=== PATIENT | male | born 1935 | race Caucasian/White ===

== ENCOUNTER 2016-10-05 09:15 | Inpatient (IN) | payer MEDICARE, OTHER ==
[2016-10-05] MEDS ORDERED: SODIUM CHLORIDE 0.9% 1,000 ML IV STA (09:27)
[2016-10-05] MEDS ORDERED: IPRATROPIUM 0.5 MG/2.5 ML NEBU INHALATION STA (09:27)
[2016-10-05] MEDS ORDERED: LEVALBUTEROL NEB 1.25 MG/3 ML AMP INHALATION STA (09:27)
[2016-10-05 10:00] LABS: Basophils % (A) 0 %; CH 33.4; Eosinophils % (A) 0 %; HCT 35.9 % (39.0-53.0); HDW 2.35; HGB 11.6 gm/dL (13.0-17.5); Luc % (Auto) 1; Lymphocytes # (A) 0.5 k/uL (1.0-4.8); Lymphocytes % (A) 5 %; MCH 32.9 pg (25.0-35.0); MCHC 32.4 g/dL (31.0-37.0); MCV 101.6 fL (80.0-100.0); Mean Platelet Volume 6.5; Monocytes # (A) 0.5 k/uL (0-1.0); Monocytes % (A) 6 %; Neutrophils # (A) 7.9 k/uL (1.3-7.7); Neutrophils % (A) 87 %; RBC 3.53 m/uL (4.30-5.90); RDW 12.5 % (11.5-15.5); WBC (Perox) 9.42
--- NOTE | 2016-10-05 10:01 | ED ---
General Adult HPI - General Chief complaint: Shortness of Breath Stated complaint: SOB Time Seen by Provider: 10/05/16 09:27 Source: patient, RN notes reviewed, old records reviewed Mode of arrival: wheelchair Limitations: no limitations - History of Present Illness Initial comments: This is a 81-year-old male who ER for evaluation. Patient presents today for evaluation of chest pain and shortness of breath. Patient's his physician's office for evaluation regarding these symptoms. Patient's main complaint results from shortness of breath. Patient does have medical history of A. fib COPD is heart disease. Patient's coming to the ER today source of breath and hypoxia. Worsening shortness of breath activity, symptoms for a week but worse today - Related Data Home Medications Medication Instructions Recorded Confirmed Amitriptyline HCl 25 mg PO HS 10/16/15 10/05/16 Digoxin [Digox] 125 mcg PO DAILY 10/16/15 10/05/16 Fenofibrate,Micronized 134 mg PO DAILY 10/16/15 10/05/16 [Fenofibrate] Ferrous Sulfate [Feosol] 325 mg PO DAILY 10/16/15 10/05/16 Mirtazapine [Mirtazapine] 15 mg PO HS 10/16/15 10/05/16 Verapamil HCl [Calan] 120 mg PO DAILY 10/16/15 10/05/16 Albuterol Nebulized [Ventolin 2.5 mg INHALATION RT-QID 01/23/16 10/05/16 Nebulized] Aspirin EC [Ecotrin Low Dose] 81 mg PO DAILY 03/23/16 10/05/16 guaiFENesin-DM 100-10MG/5ML 10 ml PO Q4HR PRN 10/05/16 10/05/16 [Robitussin DM] Previous Rx's Medication Instructions Recorded HYDROcodone/APAP 10-325MG [[place] 1 tab PO Q6H PRN #40 tab 10/22/15 10-325] Allergies Allergy/AdvReac Type Severity Reaction Status Date / Time aspirin Allergy Unknown Verified 10/05/16 11:04 Penicillins Allergy Unknown Verified 10/05/16 11:04 Review of Systems ROS Statement: Those systems with pertinent positive or pertinent negative responses have been documented in the HPI. ROS Other: All systems not noted in ROS Statement are negative. Past Medical History Past Medical History: Atrial Fibrillation, Coronary Artery Disease (CAD), CVA/ TIA Additional Past Medical History / Comment(s): COPD, Coronary artery disease with previous bypass surgery. The patient also has a bioprosthetic valve, chronic atrial fibrillation, previous history of CVA, depression, hypertension, hyperlipidemia. History of Any Multi-Drug Resistant Organisms: None Reported Past Surgical History: Coronary Bypass/CABG, Orthopedic Surgery Additional Past Surgical History / Comment(s): valve surgery shoulder surg brain surg Past Anesthesia/Blood Transfusion Reactions: No Reported Reaction Past Psychological History: No Psychological Hx Reported Smoking Status: Current every day smoker Past Alcohol Use History: None Reported Past Drug Use History: None Reported General Exam Limitations: no limitations Course Vital Signs 10/05/16 10/05/16 10/05/16 09:22 09:30 10:09 Temperature 95.6 F L Pulse Rate 70 73 62 Respiratory 22 20 Rate Blood Pressure 80/39 104/49 O2 Sat by Pulse 88 L 98 Oximetry 10/05/16 10/05/16 10/05/16 10:15 10:23 11:15 Temperature Pulse Rate 58 L 63 56 L Respiratory Rate Blood Pressure 113/59 111/53 O2 Sat by Pulse 100 97 Oximetry - Reevaluation(s) Reevaluation #1: 10/05/16 10:33 Patient does have breathing treatment improvement, improvement of respiratory status EKG Findings - EKG Comments: EKG Findings:: EKG shows normal sinus rhythm junctional rhythm rate of 66, QRS 106, QTC 419, ST depression in lateral leads. Repeat EKG shows again normal/62 , NC 186, QRS 100, QTC [address] depression in the lateral leads V4 through V6 Medical Decision Making - Medical Decision Making Side and now the ER for evaluation of cough congestion chest pain shortness of breath. Patient does have positive pneumonia, will admit for breathing treatments and IV antibiotics, patient also with elevated troponin and Adams for trending of troponin cardiopulmonary support - Lab Data Result diagrams: 10/05/16 09:44 10/05/16 09:44 Lab Results 10/05/16 10/05/16 10/05/16 Range/Units 09:44 09:44 09:44 WBC 9.0 (3.8-10.6) k/uL RBC 3.53 L (4.30-5.90) m/uL Hgb 11.6 L (13.0-17.5) gm/dL Hct 35.9 L (39.0-53.0) % MCV 101.6 H (80.0-100.0) fL MCH 32.9 (25.0-35.0) pg MCHC 32.4 (31.0-37.0) g/dL RDW 12.5 (11.5-15.5) % Plt Count 283 (150-450) k/uL Neutrophils % 87 % Lymphocytes % 5 % Monocytes % 6 % Eosinophils % 0 % Basophils % 0 % Neutrophils # 7.9 H (1.3-7.7) k/uL Lymphocytes # 0.5 L (1.0-4.8) k/uL Monocytes # 0.5 (0-1.0) k/uL Eosinophils # 0.0 (0-0.7) k/uL Basophils # 0.0 (0-0.2) k/uL PT (9.0-12.0) sec INR (<1.1) APTT (22.0-30.0) sec D-Dimer (<0.60) mg/L FEU Sodium 137 (137-145) mmol/L Potassium 3.9 (3.5-5.1) mmol/L Chloride 100 (98-107) mmol/L Carbon Dioxide 28 (22-30) mmol/L Anion Gap 9 mmol/L BUN 17 (9-20) mg/dL Creatinine 0.74 (0.66-1.25) mg/dL Est GFR (MDRD) Af Amer >60 (>60 ml/min/1.73 sqM) Est GFR (MDRD) Non-Af >60 (>60 ml/min/1.73 sqM) Glucose 106 H (74-99) mg/dL Calcium 9.2 (8.4-10.2) mg/dL Magnesium 1.5 L (1.6-2.3) mg/dL Total Bilirubin 1.1 (0.2-1.3) mg/dL AST 40 (17-59) U/L ALT 37 (21-72) U/L Alkaline Phosphatase 47 (38-126) U/L Total Creatine Kinase 76 (55-170) U/L CK-MB (CK-2) 2.4 (0.0-2.4) ng/mL CK-MB (CK-2) Rel Index 3.2 Troponin I 0.039 H* (0.000-0.034) ng/mL NT-Pro-B Natriuret Pep pg/mL Total Protein 6.2 L (6.3-8.2) g/dL Albumin 3.5 (3.5-5.0) g/dL 10/05/16 10/05/16 Range/Units 09:44 09:44 WBC (3.8-10.6) k/uL RBC (4.30-5.90) m/uL Hgb (13.0-17.5) gm/dL Hct (39.0-53.0) % MCV (80.0-100.0) fL MCH (25.0-35.0) pg MCHC (31.0-37.0) g/dL RDW (11.5-15.5) % Plt Count (150-450) k/uL Neutrophils % % Lymphocytes % % Monocytes % % Eosinophils % % Basophils % % Neutrophils # (1.3-7.7) k/uL Lymphocytes # (1.0-4.8) k/uL Monocytes # (0-1.0) k/uL Eosinophils # (0-0.7) k/uL Basophils # (0-0.2) k/uL PT 12.0 (9.0-12.0) sec INR 1.2 (<1.1) APTT 25.1 (22.0-30.0) sec D-Dimer 0.74 H (<0.60) mg/L FEU Sodium (137-145) mmol/L Potassium (3.5-5.1) mmol/L Chloride (98-107) mmol/L Carbon Dioxide (22-30) mmol/L Anion Gap mmol/L BUN (9-20) mg/dL Creatinine (0.66-1.25) mg/dL Est GFR (MDRD) Af Amer (>60 ml/min/1.73 sqM) Est GFR (MDRD) Non-Af (>60 ml/min/1.73 sqM) Glucose (74-99) mg/dL Calcium (8.4-10.2) mg/dL Magnesium (1.6-2.3) mg/dL Total Bilirubin (0.2-1.3) mg/dL AST (17-59) U/L ALT (21-72) U/L Alkaline Phosphatase (38-126) U/L Total Creatine Kinase (55-170) U/L CK-MB (CK-2) (0.0-2.4) ng/mL CK-MB (CK-2) Rel Index Troponin I (0.000-0.034) ng/mL NT-Pro-B Natriuret Pep 3370 pg/mL Total Protein (6.3-8.2) g/dL Albumin (3.5-5.0) g/dL - Radiology Data Radiology results: report reviewed (Chest x-ray is negative for acute disease), image reviewed Critical Care Time Critical Care Time: Yes Total Critical Care Time: 31 Disposition Clinical Impression: Congestive heart failure, Community acquired pneumonia, Acute exacerbation of chronic obstructive airways disease, Unstable angina, Chest pain Disposition: ADMITTED IP TO THIS HOSP Condition: Serious
[2016-10-05 10:10] LABS: ALT 37 U/L (21-72); AST 40 U/L (17-59); Alkaline Phosphatase 47 U/L (38-126); Anion Gap 9 mmol/L; Blood Urea Nitrogen 17 mg/dL (9-20); Calcium 9.2 mg/dL (8.4-10.2); Carbon Dioxide 28 mmol/L (22-30); Chloride 100 mmol/L (98-107); Glucose 106 mg/dL (74-99); INR 1.2 (<1.1); Magnesium 1.5 mg/dL (1.6-2.3); Non-African American GFR(MDRD) >60 (>60 ml/min/1.73 sqM); Partial Thromboplastin Time 25.1 sec (22.0-30.0); Potassium 3.9 mmol/L (3.5-5.1); Sodium 137 mmol/L (137-145); Total Bilirubin 1.1 mg/dL (0.2-1.3); Total Protein 6.2 g/dL (6.3-8.2)
--- NOTE | 2016-10-05 10:13 | XR ---
EXAMINATION TYPE: XR chest 1V portable DATE OF EXAM: 10/05/2016 10:02 AM COMPARISON: 12/06/2015 INDICATION: Short of breath chest pain TECHNIQUE: Single frontal view of the chest is obtained. FINDINGS: The heart size is normal. The pulmonary vasculature is normal. There may be some emphysematous change present. No focal consolidations in the right lower lobe. Correlate for pneumonia. Mild increased lung marking s are at the left base. Correlate for atelectasis or pneumonia. Progress sternotomy wires are in the midline. EKG leads overlie the chest. IMPRESSION: 1. Clinical correlation recommended for right lower lobe and possibly mild left lower lobe pneumonia. Follow-up to clearing is recommended.
[2016-10-05] MEDS ORDERED: PNEUMONIA PROTOCOL UTILIZED 1 EACH MISC PO PRN (10:16)
[2016-10-05] MEDS ORDERED: HEPARIN SODIUM,PORCINE 5,000 UNIT/ML 1 ML VIAL IV PRN (10:16)
[2016-10-05] MEDS ORDERED: LEVOFLOXACIN 750MG-D5W PMX 750 MG in DEXTROSE/WATER 1 150ML.BAG IVPB STA (10:16)
[2016-10-05] MEDS ORDERED: NITROGLYCERIN SL TABS 0.4 MG TAB SUBLINGUAL PRN (10:16)
[2016-10-05] MEDS ORDERED: MORPHINE SULFATE 4 MG/ML SYRINGE IV PRN (10:16)
[2016-10-05] MEDS ORDERED: HEPARIN SODIUM,PORCINE 5,000 UNIT/ML 1 ML VIAL IV ONE (10:16)
[2016-10-05] MEDS ORDERED: AZTREONAM 2 GM in SODIUM CHLORIDE 0.9% 100 ML IVPB STA (10:24)
[2016-10-05 10:36] LABS: Creatine Kinase MB 2.4 ng/mL (0.0-2.4)
[2016-10-05 10:50] LABS: Troponin I 0.039 ng/mL (0.000-0.034)
[2016-10-05] MEDS: HEPARIN SODIUM,PORCINE/D5W PMX 25,000 UNIT in DEXTROSE/WATER 1 500ML.BAG IV SCH (11:26)
[2016-10-05] MEDS: IPRATROPIUM-ALBUTEROL 3 ML NEB INHALATION SCH ×3 (15:14→19:39)
[2016-10-05 16:54] LABS: Creatine Kinase MB 2.3 ng/mL (0.0-2.4); Troponin I 0.031 ng/mL (0.000-0.034)
[2016-10-05] MEDS: AZTREONAM 2 GM in SODIUM CHLORIDE 0.9% 100 ML IVPB SCH (17:25)
[2016-10-05] MEDS ORDERED: RX INFO: IV CONTRAST WAS GIVEN 1 EACH MISC MISCELLANE PRN (17:33)
[2016-10-05] MEDS: CLINDAMYCIN 600 MG in DEXTROSE 5% IN WATER 50 ML IVPB SCH ×2 (18:02)
--- NOTE | 2016-10-05 19:39 | CT ---
EXAMINATION TYPE: CT chest w con DATE OF EXAM: 10/05/2016 7:26 PM COMPARISON: CT cap October 16, 2015 HISTORY: Cough, congestion and chest pain. Dyspnea per order. CT DLP: 251.4 mGycm. Automated Exposure Control for Dose Reduction was Utilized. TECHNIQUE: CT scan of the thorax is performed following with IV Contrast, patient injected with 100 mL of Omnipaque 300. FINDINGS: LUNGS: Fairly moderate to advanced emphysematous changes redemonstrated with large bulla in the right lung apex again seen. There are ill-defined infiltrates with consolidation involving the right lower lobe and right middle lobe as well as more prominent consolidation seen in the lingula. Respiratory motion artifact is seen in bases making evaluation slightly suboptimal. No pleural effusion or pneumo thorax is present. Tracheobronchial tree is patent. MEDIASTINUM: There are no greater than 1 cm hilar or mediastinal lymph nodes. No pericardial effusi on is seen. There is cardiomegaly with severe left atrial dilatation redemonstrated. There is eviden ce of prior surgery at level of mitral valve. Poststernotomy changes are noted. There is mild to mode rate calcified plaque in the thoracic aorta. OTHER: Osseous structures are demineralized. Slight S-shaped scoliosis is present. IMPRESSION: Moderate to advanced emphysematous change with bilateral multilobar opacities and consoli dation suggesting multilobar pneumonia, clinical correlation advised. Cardiomegaly with severe left a trial dilatation redemonstrated.
[2016-10-05] MEDS ORDERED: HYDROcodone/APAP 10-325MG 1 EACH TAB PO PRN (20:10)
[2016-10-05] MEDS: AMITRIPTYLINE HCL 25 MG TAB PO SCH (21:30)
[2016-10-05] MEDS: MIRTAZAPINE 15 MG TAB PO SCH (21:30)
[2016-10-05 23:51] LABS: Creatine Kinase MB 2.4 ng/mL (0.0-2.4)
[2016-10-05 23:56] LABS: Troponin I 0.037 ng/mL (0.000-0.034)
[2016-10-06] MEDS: AZTREONAM 2 GM in SODIUM CHLORIDE 0.9% 100 ML IVPB SCH ×3 (00:51→14:13)
[2016-10-06 06:57] LABS: Mean Platelet Volume 6.5
[2016-10-06 07:39] LABS: Cholesterol 122 mg/dL (<200); HDL Cholesterol 38 mg/dL (40-60); Triglycerides 72 mg/dL (<150)
[2016-10-06] MEDS ORDERED: ALBUTEROL NEBULIZED 2.5 MG/3 ML INHALATION SCH (08:00)
--- NOTE | 2016-10-06 08:32 | XR ---
EXAMINATION TYPE: XR chest 2V DATE OF EXAM: 10/06/2016 6:36 AM COMPARISON: Chest x-ray and CT chest from yesterday. HISTORY: Pneumonia progress study. TECHNIQUE: Frontal and lateral views of the chest are obtained. FINDINGS: Sternal wires are redemonstrated. There is stable mild cardiomegaly. There is background of chronic emphysematous change with small right pleural effusion slightly more prominent versus prior. There is bilateral lower lung infiltrate. Multiple old bilateral rib fractures are noted. IMPRESSION: Mild cardiomegaly and chronic emphysematous change with small right pleural effusion sli ghtly larger versus prior and bilateral lower lung infiltrates all redemonstrated.
[2016-10-06] MEDS: ASPIRIN 81 MG CHEW PO SCH (08:42)
[2016-10-06] MEDS: DIGOXIN 125 MCG TAB PO SCH (08:42)
[2016-10-06] MEDS: VERAPAMIL SR 120 MG TABLET.ER PO SCH (08:42)
[2016-10-06] MEDS: FENOFIBRATE 160 MG TAB PO SCH (08:42)
[2016-10-06] MEDS: CLINDAMYCIN 600 MG in DEXTROSE 5% IN WATER 50 ML IVPB SCH ×6 (08:48→14:12)
[2016-10-06] MEDS: IPRATROPIUM-ALBUTEROL 3 ML NEB INHALATION SCH ×4 (08:49→20:11)
[2016-10-06] MEDS: LEVOFLOXACIN 750MG-D5W PMX 750 MG in DEXTROSE/WATER 1 150ML.BAG IVPB SCH (11:14)
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
[2016-10-06] MEDS: HEPARIN SODIUM,PORCINE/D5W PMX 25,000 UNIT in DEXTROSE/WATER 1 500ML.BAG IV SCH (12:34)
[2016-10-06] MEDS: FERROUS SULFATE 325 MG TAB PO SCH (12:35)
[2016-10-06] MEDS: methylPREDNISolone SOD SUCCI 40 MG/ML 1 ML VIAL IV SCH ×2 (12:36→16:40)
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
[2016-10-06] MEDS: MAGNESIUM SULFATE-D5W PMX 1 GM in DEXTROSE/WATER 1 100ML.BAG IVPB SCH ×2 (15:02→16:34)
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
[2016-10-06 16:59] LABS: Glucose,Whole Blood 96 mg/dL (75-99)
[2016-10-06] MEDS: INSULIN LISPRO (humaLOG) 300 UNIT/3 ML VIAL SQ SCH ×2 (17:29→21:55)
[2016-10-06 19:30] LABS: Anion Gap 9 mmol/L; Blood Urea Nitrogen 14 mg/dL (9-20); Calcium 8.6 mg/dL (8.4-10.2); Carbon Dioxide 25 mmol/L (22-30); Chloride 100 mmol/L (98-107); Glucose 118 mg/dL (74-99); Non-African American GFR(MDRD) >60 (>60 ml/min/1.73 sqM); Potassium 3.7 mmol/L (3.5-5.1); Sodium 134 mmol/L (137-145)
[2016-10-06] MEDS: BUDESONIDE 1 MG/2 ML NEBU INHALATION SCH (20:11)
[2016-10-06 21:48] LABS: Glucose,Whole Blood 329 mg/dL (75-99)
[2016-10-06] MEDS: MIRTAZAPINE 15 MG TAB PO SCH (21:50)
[2016-10-06] MEDS: FUROSEMIDE 10 MG/ML 2 ML VIAL IV SCH (21:50)
[2016-10-06] MEDS: AMITRIPTYLINE HCL 25 MG TAB PO SCH (21:50)
[2016-10-06] MEDS: FAMOTIDINE 20 MG TAB PO SCH (21:50)
[2016-10-07] MEDS: CLINDAMYCIN 600 MG in DEXTROSE 5% IN WATER 50 ML IVPB SCH ×6 (00:26→17:32)
[2016-10-07] MEDS: methylPREDNISolone SOD SUCCI 40 MG/ML 1 ML VIAL IV SCH ×4 (00:32→23:13)
[2016-10-07] MEDS: AZTREONAM 2 GM in SODIUM CHLORIDE 0.9% 100 ML IVPB SCH ×4 (01:12→23:13)
[2016-10-07 06:23] LABS: Glucose,Whole Blood 134 mg/dL (75-99)
[2016-10-07 06:29] LABS: Mean Platelet Volume 6.5
[2016-10-07] MEDS: INSULIN LISPRO (humaLOG) 300 UNIT/3 ML VIAL SQ SCH ×4 (06:48→21:28)
[2016-10-07] MEDS: IPRATROPIUM-ALBUTEROL 3 ML NEB INHALATION SCH ×4 (07:05→19:43)
[2016-10-07] MEDS: BUDESONIDE 1 MG/2 ML NEBU INHALATION SCH ×2 (07:05→19:43)
[2016-10-07 07:18] LABS: ALT 37 U/L (21-72); AST 61 U/L (17-59); Alkaline Phosphatase 51 U/L (38-126); Anion Gap 10 mmol/L; Blood Urea Nitrogen 19 mg/dL (9-20); Calcium 8.9 mg/dL (8.4-10.2); Carbon Dioxide 29 mmol/L (22-30); Chloride 101 mmol/L (98-107); Glucose 140 mg/dL (74-99); Magnesium 1.8 mg/dL (1.6-2.3); Non-African American GFR(MDRD) >60 (>60 ml/min/1.73 sqM); Potassium 3.9 mmol/L (3.5-5.1); Sodium 140 mmol/L (137-145); Total Bilirubin 0.7 mg/dL (0.2-1.3)
[2016-10-07] MEDS: FUROSEMIDE 10 MG/ML 2 ML VIAL IV SCH ×2 (09:03→21:28)
[2016-10-07] MEDS: ASPIRIN 81 MG CHEW PO SCH (09:04)
[2016-10-07] MEDS: FENOFIBRATE 160 MG TAB PO SCH (09:04)
[2016-10-07] MEDS: DIGOXIN 125 MCG TAB PO SCH (09:05)
[2016-10-07] MEDS: VERAPAMIL SR 120 MG TABLET.ER PO SCH (09:05)
--- NOTE | 2016-10-07 10:51 | ECHOF ---
Referral Reason:lv fxn MEASUREMENTS -------- HEIGHT: 157.5 cm WEIGHT: 62.6 kg BP: IVSd: 1.3 cm (0.6 - 1.1) LVIDd: 4.8 cm (3.9 - 5.3) LVPWd: 1.3 cm (0.6 - 1.1) IVSs: 1.5 cm LVIDs: 3.8 cm LVPWs: 1.2 cm Ao Diam: 3.0 cm (2.0 - 3.7) AV Cusp: 0.8 cm (1.5 - 2.6) LA Diam: 5.9 cm (2.7 - 3.8) MV E Arnaldo: 1.90 m/s MV DecT: 270 ms MV A Arnaldo: 0.37 m/s MV E/A Ratio: 5.14 AV maxP.39 mmHg AV meanP.67 mmHg RAP: 5.00 mmHg RVSP: 40.83 mmHg FINDINGS -------- Undetermined rhythm. This was a technically adequate study. There is mild concentric left ventricular hypertrophy. Overall left ventricular systolic function is low-normal with, an EF between 50 - 55 %. The right ventricle is normal in size. The left atrium is markedly dilated. The right atrium is mildly enlarged. There is moderate aortic stenosis present. Peak/mean gradient across the Aortic Valve is 36.39mmHg / 16.67mmHg. Aov is stenotic with decrease opening. Mechanical MVR is well seated. Mild tricuspid regurgitation present. There is mild pulmonary hypertension. The right ventricular systolic pressure, as measured by Doppler, is 40.83mmHg. Trace/mild (physiologic) pulmonic regurgitation. The aortic root size is normal. There is no pericardial effusion. CONCLUSIONS -------- 1. There is mild concentric left ventricular hypertrophy. 2. There is mild pulmonary hypertension. 3. The right ventricular systolic pressure, as measured by Doppler, is 40.83mmHg. 4. Trace/mild (physiologic) pulmonic regurgitation. 5. The aortic root size is normal. 6. There is no pericardial effusion. 7. Overall left ventricular systolic function is low-normal with, an EF between 50 - 55 %. 8. The left atrium is markedly dilated. 9. The right atrium is mildly enlarged. 10. There is moderate aortic stenosis present. 11. Peak/mean gradient across the Aortic Valve is 36.39mmHg / 16.67mmHg. 12. Aov is stenotic with decrease opening. 13. Mechanical MVR is well seated. 14. Mild tricuspid regurgitation present. POLICE CHIEF: Karin Bennett RDCS
--- NOTE | 2016-10-07 11:01 | P.PN ---
Subjective This is a 81-year-old male patient being evaluated and examined today on the selective care unit. This patient came into the emergency room with chest pain and shortness of breath. He states that his main complaint is her shortness of breath which had been worsening over the last few days, especially with exertion. Patient states that he has had an extensive cough with congestion and white to green sputum. Per the ER labs the patient did have an BNP of 3370 , and elevated troponin of 0.039 therefore the patient was started on low intensity heparin. Patient's chest x-ray was reviewed and revealed a right lower lobe pneumonia with possible left lower lobe pneumonia. CT of the chest failed to show any pulmonary emboli. Patient was admitted to the selective care unit with congestive heart failure, community-acquired pneumonia, acute exacerbation of chronic obstructive airway disease, unstable angina, chest pain. Upon examination the patient is resting up in bed on 1-2 L of supplemental oxygen via nasal cannula. This patient does not use home oxygen at all. He continues to complain of a productive cough with white to green sputum, however is improving. Coughing is also less frequent. Sputum cultures are pending Objective - Vital Signs Vital signs: Vital Signs Temp 97.5 F L 10/07/16 04:00 Pulse 94 10/07/16 07:15 Resp 18 10/07/16 04:00 BP 139/72 10/07/16 04:00 Pulse Ox 95 10/07/16 04:00 Intake & Output 10/06/16 10/07/16 10/07/16 18:59 06:59 18:59 Intake Total 1056.816 500 Output Total 450 550 200 Balance 606.816 -50 -200 Weight 62.6 kg 61.2 kg Intake: Intake, IV Titration 681.816 150 Amount Aztreonam 2 gm In Sodium 100 100 Chloride 0.9% 100 ml @ 100 mls/hr IVPB Q8HR [facility] Rx#:[id number] Clindamycin 600 mg In 100 50 Dextrose 5% in Water 50 ml @ 100 mls/hr IVPB Q8HR [facility] Rx#:[id number] Heparin Sodium,Porcine/ 231.816 D5w Pmx 25,000 unit In Dextrose/Water 1 500ml. bag @ 12 UNITS/KG/HR 15. 13 mls/hr IV .Q24H [facility] Rx #:[id number] Levofloxacin 750Mg-D5w 150 Pmx 750 mg In Dextrose/ Water 1 150ml.bag @ 100 mls/hr IVPB Q24H [facility] Rx#: [id number] Sodium Chloride 0.9% 1, 100 000 ml @ 100 mls/hr IV . Q10H [facility] Rx#:[id number] Oral 375 350 Output: Urine 450 550 200 Other: Voiding Method Urinal # Voids 2 1 - Exam GENERAL EXAM: Alert, active, comfortable in no apparent distress. HEAD: Normocephalic. EYES: Normal reaction of pupils, equal size. NOSE: Clear with pink turbinates. THROAT: No erythema or exudates. NECK: No masses, no JVD. CHEST: No chest wall deformity. LUNGS: Patient did have scattered rhonchi and wheezes throughout. Lung sounds course Mikey bases diminished. CVS: S1 and S2 normal with no audible mumurs, regular rhythm. ABDOMEN: No hepatosplenomegaly, normal bowel sounds, no guarding or rigidity. EXTREMITIES: No edema noted, pedal pulses palpable. SKIN: No rashes CENTRAL NERVOUS SYSTEM: No focal deficits, tone is normal in all 4 extremities. - Labs CBC & Chem 7: 10/07/16 06:13 10/07/16 06:13 Labs: Abnormal Lab Results - Last 24 Hours (Table) 10/06/16 10/06/16 10/06/16 Range/Units 14:58 18:53 21:47 APTT 48.9 H (22.0-30.0) sec Sodium 134 L (137-145) mmol/L Creatinine 0.57 L (0.66-1.25) mg/dL Glucose 118 H (74-99) mg/dL POC Glucose (mg/dL) 329 H (75-99) mg/dL AST (17-59) U/L Total Protein (6.3-8.2) g/dL Albumin (3.5-5.0) g/dL 10/07/16 10/07/16 10/07/16 Range/Units 06:13 06:13 06:19 APTT 61.2 H (22.0-30.0) sec Sodium (137-145) mmol/L Creatinine 0.61 L (0.66-1.25) mg/dL Glucose 140 H (74-99) mg/dL POC Glucose (mg/dL) 134 H (75-99) mg/dL AST 61 H (17-59) U/L Total Protein 6.0 L (6.3-8.2) g/dL Albumin 3.1 L (3.5-5.0) g/dL Microbiology - Last 24 Hours (Table) 10/05/16 09:44 Blood Culture - Preliminary Blood No Growth after 24 hours Assessment and Plan Plan: Assessment Community-acquired pneumonia, suspect mixed bacterial Small right pleural effusion Acute exacerbation of COPD Acute hypoxic respiratory failure Unstable angina/chest pain Congestive heart failure Plan Medications have been reviewed and will be continued as ordered. Continue with budesonide and his current nebulizer treatments. Continue with Solu-Medrol IV. Continue with antibiotics. We will initiate and encourage incentive spirometer. Continue supplemental oxygen to maintain oxygen saturations greater than 92%. We will continue with pulmonary hygiene and supportive care. We will repeat labs in the morning. Sputum and blood culture pending. Continue to monitor the effusion. Repeat chest x-ray tomorrow. Cardiology also on consult. We will continue to monitor labs/results and adjust treatment as necessary. I performed an examination of the patient and discussed their management with the nurse practitioner. I have reviewed the nurse practitioner's note and agree with the documented findings and plan of care.
[2016-10-07] MEDS: FERROUS SULFATE 325 MG TAB PO SCH (11:12)
[2016-10-07] MEDS: LEVOFLOXACIN 750MG-D5W PMX 750 MG in DEXTROSE/WATER 1 150ML.BAG IVPB SCH (11:13)
[2016-10-07] MEDS: HEPARIN SODIUM,PORCINE/D5W PMX 25,000 UNIT in DEXTROSE/WATER 1 500ML.BAG IV SCH (11:21)
[2016-10-07 11:43] LABS: Glucose,Whole Blood 265 mg/dL (75-99)
[2016-10-07] MEDS ORDERED: POTASSIUM CHLORIDE ER 20 MEQ TAB.ER PO STA (11:58)
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
[2016-10-07] MEDS: MAGNESIUM SULFATE-D5W PMX 1 GM in DEXTROSE/WATER 1 100ML.BAG IVPB SCH ×2 (13:16→15:30)
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
[2016-10-07 16:43] LABS: Glucose,Whole Blood 141 mg/dL (75-99)
[2016-10-07 21:26] LABS: Glucose,Whole Blood 249 mg/dL (75-99)
[2016-10-07] MEDS: MIRTAZAPINE 15 MG TAB PO SCH (21:27)
[2016-10-07] MEDS: FAMOTIDINE 20 MG TAB PO SCH (21:28)
[2016-10-07 23:11] LABS: Anion Gap 11 mmol/L; Blood Urea Nitrogen 36 mg/dL (9-20); Calcium 9.1 mg/dL (8.4-10.2); Carbon Dioxide 28 mmol/L (22-30); Chloride 99 mmol/L (98-107); Glucose 226 mg/dL (74-99); Magnesium 2.2 mg/dL (1.6-2.3); Non-African American GFR(MDRD) >60 (>60 ml/min/1.73 sqM); Potassium 3.8 mmol/L (3.5-5.1); Sodium 138 mmol/L (137-145)
[2016-10-08] MEDS: HEPARIN SODIUM,PORCINE/D5W PMX 25,000 UNIT in DEXTROSE/WATER 1 500ML.BAG IV SCH (01:50)
[2016-10-08] MEDS ORDERED: Potassium Replacement Protocol 1 EACH MISC MISCELLANE PRN (05:26)
[2016-10-08] MEDS ORDERED: POTASSIUM CHLORIDE ER 20 MEQ TAB.ER PO SCH (06:00)
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
[2016-10-08 06:50] LABS: Glucose,Whole Blood 154 mg/dL (75-99)
[2016-10-08] MEDS: INSULIN LISPRO (humaLOG) 300 UNIT/3 ML VIAL SQ SCH ×4 (06:53→21:54)
[2016-10-08 07:15] LABS: Mean Platelet Volume 6.6
[2016-10-08 07:29] LABS: ALT 46 U/L (21-72); AST 69 U/L (17-59); Alkaline Phosphatase 52 U/L (38-126); Anion Gap 8 mmol/L; Blood Urea Nitrogen 33 mg/dL (9-20); Carbon Dioxide 33 mmol/L (22-30); Chloride 100 mmol/L (98-107); Glucose 149 mg/dL (74-99); Non-African American GFR(MDRD) >60 (>60 ml/min/1.73 sqM); Potassium 4.1 mmol/L (3.5-5.1); Sodium 141 mmol/L (137-145); Total Bilirubin 0.6 mg/dL (0.2-1.3); Total Protein 5.6 g/dL (6.3-8.2)
--- NOTE | 2016-10-08 08:06 | XR ---
EXAMINATION TYPE: XR chest 2V DATE OF EXAM: 10/08/2016 7:15 AM COMPARISON: 10/06/2016 INDICATION: Short of breath TECHNIQUE: Single frontal view of the chest is obtained. FINDINGS: The heart size is normal. The pulmonary vasculature is normal. There is some patchy infiltrate at the bilateral lung bases greater on the right. Resolving pneumonia could be considered. Small right pleural effusion remains present. Minimal fluid may be in the poste rior costophrenic angle. IMPRESSION: 1. Resolving bibasilar infiltrates. Continued follow-up is recommended.
[2016-10-08] MEDS: BUDESONIDE 1 MG/2 ML NEBU INHALATION SCH ×2 (08:27→20:37)
[2016-10-08] MEDS: IPRATROPIUM-ALBUTEROL 3 ML NEB INHALATION SCH ×4 (08:27→20:37)
[2016-10-08] MEDS: methylPREDNISolone SOD SUCCI 40 MG/ML 1 ML VIAL IV SCH ×3 (08:40→23:53)
[2016-10-08] MEDS: AZTREONAM 2 GM in SODIUM CHLORIDE 0.9% 100 ML IVPB SCH ×3 (08:59→23:52)
[2016-10-08] MEDS: ASPIRIN 81 MG CHEW PO SCH (09:02)
[2016-10-08] MEDS: FENOFIBRATE 160 MG TAB PO SCH (09:02)
[2016-10-08] MEDS: SPIRONOLACTONE 25 MG TAB PO SCH (09:03)
[2016-10-08] MEDS: FUROSEMIDE 10 MG/ML 2 ML VIAL IV SCH ×2 (09:03→21:54)
[2016-10-08] MEDS: VERAPAMIL SR 120 MG TABLET.ER PO SCH (09:04)
[2016-10-08] MEDS ORDERED: LEVOFLOXACIN 750 MG TAB PO SCH (11:00)
--- NOTE | 2016-10-08 11:29 | P.PN ---
Subjective This is a 81-year-old male patient being evaluated and examined today on the selective care unit. This patient came into the emergency room with chest pain and shortness of breath. He states that his main complaint is her shortness of breath which had been worsening over the last few days, especially with exertion. Patient states that he has had an extensive cough with congestion and white to green sputum. Per the ER labs the patient did have an BNP of 3370 , and elevated troponin of 0.039 therefore the patient was started on low intensity heparin. Patient's chest x-ray was reviewed and revealed a right lower lobe pneumonia with possible left lower lobe pneumonia. CT of the chest failed to show any pulmonary emboli. Patient was admitted to the selective care unit with congestive heart failure, community-acquired pneumonia, acute exacerbation of chronic obstructive airway disease, unstable angina, chest pain. Upon examination the patient is resting up in bed on 3 L of supplemental oxygen via nasal cannula. This patient does not use home oxygen at all. He continues to complain of a productive cough with white to green sputum, however is improving. Coughing is also less frequent. Chest x-ray reviewed and shows resolving bilateral infiltrates. Infectious disease and cardiology on consult Objective - Vital Signs Vital signs: Vital Signs Temp 97.1 F L 10/08/16 08:00 Pulse 88 10/08/16 08:42 Resp 18 10/08/16 08:00 BP 115/50 10/08/16 08:00 Pulse Ox 94 L 10/08/16 08:27 Intake & Output 10/07/16 10/08/16 10/08/16 18:59 06:59 18:59 Intake Total 430 401.768 120 Output Total 325 800 100 Balance 105 -398.232 20 Weight 61.7 kg Intake: Intake, IV Titration 100 401.768 Amount Heparin Sodium,Porcine/ 401.768 D5w Pmx 25,000 unit In Dextrose/Water 1 500ml. bag @ 12 UNITS/KG/HR 15. 13 mls/hr IV .Q24H [facility] Rx #:[id number] Magnesium Sulfate-D5w Pmx 100 1 gm In Dextrose/Water 1 100ml.bag @ 100 mls/hr IVPB Q1H [facility] Rx#: [id number] Oral 330 120 Output: Urine 325 800 100 Other: Voiding Method Urinal # Voids 1 1 - Exam GENERAL EXAM: Alert, active, comfortable in no apparent distress. HEAD: Normocephalic. EYES: Normal reaction of pupils, equal size. NOSE: Clear with pink turbinates. THROAT: No erythema or exudates. NECK: No masses, no JVD. CHEST: No chest wall deformity. LUNGS: Patient did have scattered rhonchi and wheezes throughout. Lung sounds course Mikey bases diminished. CVS: S1 and S2 normal with no audible mumurs, regular rhythm. ABDOMEN: No hepatosplenomegaly, normal bowel sounds, no guarding or rigidity. EXTREMITIES: No edema noted, pedal pulses palpable. SKIN: No rashes CENTRAL NERVOUS SYSTEM: No focal deficits, tone is normal in all 4 extremities. - Labs CBC & Chem 7: 10/08/16 06:36 10/08/16 06:36 Labs: Abnormal Lab Results - Last 24 Hours (Table) 10/07/16 10/07/16 10/07/16 Range/Units 11:38 16:40 21:10 APTT (22.0-30.0) sec Carbon Dioxide (22-30) mmol/L BUN (9-20) mg/dL Glucose (74-99) mg/dL POC Glucose (mg/dL) 265 H 141 H 249 H (75-99) mg/dL AST (17-59) U/L Total Protein (6.3-8.2) g/dL Albumin (3.5-5.0) g/dL 10/07/16 10/08/16 10/08/16 Range/Units 22:34 06:36 06:38 APTT (22.0-30.0) sec Carbon Dioxide 33 H (22-30) mmol/L BUN 36 H 33 H (9-20) mg/dL Glucose 226 H 149 H (74-99) mg/dL POC Glucose (mg/dL) 154 H (75-99) mg/dL AST 69 H (17-59) U/L Total Protein 5.6 L (6.3-8.2) g/dL Albumin 3.1 L (3.5-5.0) g/dL 10/08/16 Range/Units 06:40 APTT 57.8 H (22.0-30.0) sec Carbon Dioxide (22-30) mmol/L BUN (9-20) mg/dL Glucose (74-99) mg/dL POC Glucose (mg/dL) (75-99) mg/dL AST (17-59) U/L Total Protein (6.3-8.2) g/dL Albumin (3.5-5.0) g/dL Microbiology - Last 24 Hours (Table) 10/05/16 19:52 Gram Stain - Final Sputum Sputum Culture - Final 10/05/16 09:44 Blood Culture - Preliminary Blood No Growth after 48 hours Assessment and Plan Plan: Assessment Community-acquired pneumonia, suspect mixed bacterial Small right pleural effusion Acute exacerbation of COPD Acute hypoxic respiratory failure Unstable angina/chest pain Congestive heart failure Plan Medications have been reviewed and will be continued as ordered. Continue with budesonide and his current nebulizer treatments. Continue with Solu-Medrol IV. Continue with antibiotics. We will initiate and encourage incentive spirometer. Continue supplemental oxygen to maintain oxygen saturations greater than 92%. The patient's oxygen demands from yesterday to today have gone up to 3 L. We will continue with pulmonary hygiene and supportive care. We will repeat labs in the morning. Sputum and blood culture pending. Continue to monitor the effusion. Cardiology also on consult. We will continue to monitor labs/results and adjust treatment as necessary. I performed an examination of the patient and discussed their management with the nurse practitioner. I have reviewed the nurse practitioner's note and agree with the documented findings and plan of care.
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
[2016-10-08 11:59] LABS: Glucose,Whole Blood 116 mg/dL (75-99)
[2016-10-08] MEDS: FERROUS SULFATE 325 MG TAB PO SCH (12:05)
[2016-10-08] MEDS: guaiFENesin-DM 100-10MG/5ML 10 ML CUP PO PRN ×2 (12:09→20:24)
[2016-10-08 13:56] VITALS: BMI 18.9
--- NOTE | 2016-10-08 15:15 | P.PN ---
Subjective Principal diagnosis: cough and shortness of breath This is a 81-year-old gentleman who used to follow with Dr. DELFIN Matthew in the office, states that he now only sees Dr. England. Has a known history of valvular heart disease and is status post aortic and mitral valve replacement, COPD, chronic persistent atrial fibrillation, history of prior stroke, hypertension, hyperlipidemia. He presented to the hospital mainly with symptoms of progressively worsening shortness of breath with associated productive cough. He was noted on the monitor to have runs of nonsustained ventricular tachycardia and therefore some of the QT prolonging medications were discontinued. He remains on Levaquin at this time. Objective - Vital Signs Vital signs: Vital Signs Temp 97.4 F L 10/08/16 12:00 Pulse 95 10/08/16 12:00 Resp 18 10/08/16 12:00 BP 99/60 10/08/16 12:00 Pulse Ox 95 10/08/16 12:00 Intake & Output 10/07/16 10/08/16 10/08/16 18:59 06:59 18:59 Intake Total 430 401.768 600 Output Total 325 800 800 Balance 105 -398.232 -200 Weight 61.7 kg 61.7 kg Intake: Intake, IV Titration 100 401.768 Amount Heparin Sodium,Porcine/ 401.768 D5w Pmx 25,000 unit In Dextrose/Water 1 500ml. bag @ 12 UNITS/KG/HR 15. 13 mls/hr IV .Q24H [facility] Rx #:[id number] Magnesium Sulfate-D5w Pmx 100 1 gm In Dextrose/Water 1 100ml.bag @ 100 mls/hr IVPB Q1H [facility] Rx#: [id number] Oral 330 600 Output: Urine 325 800 800 Other: Voiding Method Urinal # Voids 1 1 1 - Exam PHYSICAL EXAMINATION: HEENT: Head is atraumatic, normocephalic. Pupils equal, round. Neck is supple. There is no elevated jugular venous pressure. HEART EXAMINATION: Heart sounds irregular irregular, S1 and S2 with a systolic murmur. No sounds of a mechanical valve auscultated CHEST EXAMINATION: Lungs reveal scattered coarse wheezes throughout. No chest wall tenderness is noted on palpation or with deep breathing. ABDOMEN: Soft, nontender. Bowel sounds are heard. No organomegaly noted. EXTREMITIES: 2+ peripheral pulses with no evidence of peripheral edema and no calf tenderness noted. NEUROLOGIC patient is awake, alert and oriented x3. . - Labs CBC & Chem 7: 10/08/16 06:36 10/08/16 11:33 Labs: Abnormal Lab Results - Last 24 Hours (Table) 10/07/16 10/07/16 10/07/16 Range/Units 16:40 21:10 22:34 APTT (22.0-30.0) sec Carbon Dioxide (22-30) mmol/L BUN 36 H (9-20) mg/dL Glucose 226 H (74-99) mg/dL POC Glucose (mg/dL) 141 H 249 H (75-99) mg/dL AST (17-59) U/L Total Protein (6.3-8.2) g/dL Albumin (3.5-5.0) g/dL 10/08/16 10/08/16 10/08/16 Range/Units 06:36 06:38 06:40 APTT 57.8 H (22.0-30.0) sec Carbon Dioxide 33 H (22-30) mmol/L BUN 33 H (9-20) mg/dL Glucose 149 H (74-99) mg/dL POC Glucose (mg/dL) 154 H (75-99) mg/dL AST 69 H (17-59) U/L Total Protein 5.6 L (6.3-8.2) g/dL Albumin 3.1 L (3.5-5.0) g/dL 10/08/16 Range/Units 11:49 APTT (22.0-30.0) sec Carbon Dioxide (22-30) mmol/L BUN (9-20) mg/dL Glucose (74-99) mg/dL POC Glucose (mg/dL) 116 H (75-99) mg/dL AST (17-59) U/L Total Protein (6.3-8.2) g/dL Albumin (3.5-5.0) g/dL Microbiology - Last 24 Hours (Table) 10/05/16 09:44 Blood Culture - Preliminary Blood No Growth after 72 hours 10/05/16 19:52 Gram Stain - Final Sputum Sputum Culture - Final Assessment and Plan Plan: Assessment and plan #1 pneumonia #2 chronic atrial fibrillation, not on anticoagulation #3 history of a CVA #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 Patient is not a candidate for anticoagulation due to history of subdural hematoma. We will discontinue Levaquin. Avoid all QT prolonging medications. Further recommendations to follow. EDUCATIONAL THERAPY TEACHER note has been reviewed, I agree with a documented findings and plan of care. Patient was seen and examined.
[2016-10-08 16:35] LABS: Glucose,Whole Blood 132 mg/dL (75-99)
--- NOTE | 2016-10-08 17:02 | PN ---
DATE OF SERVICE: 10/08/2016 REASON FOR FOLLOWUP: Pneumonia. INTERVAL HISTORY: The patient is afebrile. He is breathing comfortably today. Patient's overall cough has decreased in intensity; less productive now. Patient denies any hemoptysis. No chest pain. No abdominal pain and no diarrhea. On examination, blood pressure is 99/60 with a pulse of 66, temperature 97.4. He is 95% on room air. General description is an elderly male up in the bed in no distress. RESPIRATORY SYSTEM: Unlabored breathing with decreased breath sounds at the base. No wheeze. HEART: S1, S2. Regular rate and rhythm. ABDOMEN: Soft. No tenderness. EXTREMITIES: No edema of the feet. LABS: BUN of 33 with a creatinine 0.75. Sputum cultures currently pending. Blood cultures so far negative. DIAGNOSTIC IMPRESSION AND PLAN: Patient with left middle and lower lobe pneumonia, likely community-acquired; patient does have a history of PENICILLIN ALLERGY, as documented on the chart, but when asked specifically, the patient denies. We do not have any way to confirm his true penicillin allergy. He is currently on Azactam and Levaquin, with overall improvement. Chest x-ray did show improvement as well. If the sputum is negative for any resistant pathogen, he will be able to finish therapy with oral Levaquin. Continue supportive care.
[2016-10-08 20:43] LABS: Glucose,Whole Blood 202 mg/dL (75-99)
[2016-10-08] MEDS: FAMOTIDINE 20 MG TAB PO SCH (21:53)
[2016-10-08] MEDS: MIRTAZAPINE 15 MG TAB PO SCH (21:54)
[2016-10-08] MEDS: ZOLPIDEM 5 MG TAB PO SCH (21:59)
[2016-10-09] MEDS: INSULIN LISPRO (humaLOG) 300 UNIT/3 ML VIAL SQ SCH ×4 (06:24→21:06)
[2016-10-09 06:25] LABS: Glucose,Whole Blood 119 mg/dL (75-99)
[2016-10-09 08:01] LABS: ALT 49 U/L (21-72); AST 55 U/L (17-59); Alkaline Phosphatase 52 U/L (38-126); Anion Gap 9 mmol/L; Blood Urea Nitrogen 36 mg/dL (9-20); Calcium 9.7 mg/dL (8.4-10.2); Carbon Dioxide 36 mmol/L (22-30); Chloride 96 mmol/L (98-107); Glucose 120 mg/dL (74-99); Magnesium 1.9 mg/dL (1.6-2.3); Non-African American GFR(MDRD) >60 (>60 ml/min/1.73 sqM); Sodium 141 mmol/L (137-145); Total Bilirubin 0.7 mg/dL (0.2-1.3); Total Protein 6.1 g/dL (6.3-8.2)
[2016-10-09] MEDS: methylPREDNISolone SOD SUCCI 40 MG/ML 1 ML VIAL IV SCH (09:17)
[2016-10-09] MEDS: ASPIRIN 81 MG CHEW PO SCH (09:17)
[2016-10-09] MEDS: FUROSEMIDE 10 MG/ML 2 ML VIAL IV SCH ×2 (09:17→20:55)
[2016-10-09] MEDS: FENOFIBRATE 160 MG TAB PO SCH (09:17)
[2016-10-09] MEDS: SPIRONOLACTONE 25 MG TAB PO SCH (09:17)
[2016-10-09] MEDS: AZTREONAM 2 GM in SODIUM CHLORIDE 0.9% 100 ML IVPB SCH ×3 (09:17→23:36)
[2016-10-09] MEDS: guaiFENesin-DM 100-10MG/5ML 10 ML CUP PO PRN (09:17)
[2016-10-09] MEDS: VERAPAMIL SR 120 MG TABLET.ER PO SCH (09:18)
[2016-10-09] MEDS: IPRATROPIUM-ALBUTEROL 3 ML NEB INHALATION SCH ×4 (10:01→21:37)
[2016-10-09] MEDS: BUDESONIDE 1 MG/2 ML NEBU INHALATION SCH ×2 (10:01→21:37)
[2016-10-09 11:53] LABS: Glucose,Whole Blood 104 mg/dL (75-99)
--- NOTE | 2016-10-09 12:30 | P.PN ---
Subjective Principal diagnosis: cough and shortness of breath This is a 81-year-old gentleman who used to follow with Dr. DELFIN Matthew in the office, states that he now only sees Dr. England. Has a known history of valvular heart disease and is status post aortic and mitral valve replacement, COPD, chronic persistent atrial fibrillation, history of prior stroke, hypertension, hyperlipidemia. He presented to the hospital mainly with symptoms of progressively worsening shortness of breath with associated productive cough. He was noted on the monitor to have runs of nonsustained ventricular tachycardia and therefore some of the QT prolonging medications were discontinued. Levaquin was discontinued yesterday. Objective - Vital Signs Vital signs: Vital Signs Temp 96.3 F L 10/09/16 08:00 Pulse 96 10/09/16 12:22 Resp 18 10/09/16 04:00 BP 129/66 10/09/16 08:00 Pulse Ox 94 L 10/09/16 08:00 Intake & Output 10/08/16 10/09/16 10/09/16 18:59 06:59 18:59 Intake Total 1320 100 517 Output Total 800 500 Balance 520 -400 517 Weight 61.7 kg 64 kg Intake: Intake, IV Titration 100 100 Amount Aztreonam 2 gm In Sodium 100 100 Chloride 0.9% 100 ml @ 100 mls/hr IVPB Q8HR [facility] Rx#:[id number] Oral 1320 417 Output: Urine 800 500 Other: Voiding Method Urinal # Voids 1 - Exam PHYSICAL EXAMINATION: HEENT: Head is atraumatic, normocephalic. Pupils equal, round. Neck is supple. There is no elevated jugular venous pressure. HEART EXAMINATION: Heart sounds irregular irregular, S1 and S2 with a systolic murmur. No sounds of a mechanical valve auscultated CHEST EXAMINATION: Lungs reveal diminished air entry throughout. No chest wall tenderness is noted on palpation or with deep breathing. ABDOMEN: Soft, nontender. Bowel sounds are heard. No organomegaly noted. EXTREMITIES: 2+ peripheral pulses with no evidence of peripheral edema and no calf tenderness noted. NEUROLOGIC patient is awake, alert and oriented x3. . - Labs CBC & Chem 7: 10/08/16 06:36 10/09/16 06:19 Labs: Abnormal Lab Results - Last 24 Hours (Table) 10/08/16 10/08/16 10/09/16 Range/Units 16:30 20:41 06:19 Chloride 96 L (98-107) mmol/L Carbon Dioxide 36 H (22-30) mmol/L BUN 36 H (9-20) mg/dL Glucose 120 H (74-99) mg/dL POC Glucose (mg/dL) 132 H 202 H (75-99) mg/dL Total Protein 6.1 L (6.3-8.2) g/dL 10/09/16 10/09/16 Range/Units 06:23 11:51 Chloride (98-107) mmol/L Carbon Dioxide (22-30) mmol/L BUN (9-20) mg/dL Glucose (74-99) mg/dL POC Glucose (mg/dL) 119 H 104 H (75-99) mg/dL Total Protein (6.3-8.2) g/dL Microbiology - Last 24 Hours (Table) 10/05/16 09:44 Blood Culture - Preliminary Blood No Growth after 72 hours 10/05/16 19:52 Gram Stain - Final Sputum Sputum Culture - Final Assessment and Plan Plan: Assessment and plan #1 pneumonia #2 chronic atrial fibrillation, not on anticoagulation #3 history of a CVA #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 Avoid all QT prolonging medications. We anticipate the patient will be discharged home. Will follow-up as an outpatient. STRIPER MACHINE note has been reviewed, I agree with a documented findings and plan of care. Patient was seen and examined.
[2016-10-09] MEDS: FERROUS SULFATE 325 MG TAB PO SCH (12:34)
--- NOTE | 2016-10-09 12:44 | P.PN ---
Subjective Principal diagnosis: Acute exacerbation of COPD, community-acquired pneumonia Patient seen and examined covering for Dr. Husain. The patient states that he feels really well today and would like to go home. He states he feels like his breathing is at baseline. He does not have oxygen at home however. He is currently on 2 L nasal cannula. The patient is made aware that he will need a home O2 evaluation prior to discharge. Objective - Vital Signs Vital signs: Vital Signs Temp 96.3 F L 10/09/16 08:00 Pulse 96 10/09/16 12:33 Resp 18 10/09/16 04:00 BP 129/66 10/09/16 08:00 Pulse Ox 94 L 10/09/16 08:00 Intake & Output 10/08/16 10/09/16 10/09/16 18:59 06:59 18:59 Intake Total 1320 100 517 Output Total 800 500 Balance 520 -400 517 Weight 61.7 kg 64 kg Intake: Intake, IV Titration 100 100 Amount Aztreonam 2 gm In Sodium 100 100 Chloride 0.9% 100 ml @ 100 mls/hr IVPB Q8HR [facility] Rx#:[id number] Oral 1320 417 Output: Urine 800 500 Other: Voiding Method Urinal # Voids 1 - Exam Gen.: Patient is alert and oriented 3, no acute distress, cachexia Cardiovascular: Regular rate and rhythm, S1-S2 Lungs: Diminished breath sounds bilaterally Abdomen: Soft nontender nondistended positive bowel sounds Extremities: No edema - Labs CBC & Chem 7: 10/08/16 06:36 10/09/16 06:19 Labs: Abnormal Lab Results - Last 24 Hours (Table) 10/08/16 10/08/16 10/09/16 Range/Units 16:30 20:41 06:19 Chloride 96 L (98-107) mmol/L Carbon Dioxide 36 H (22-30) mmol/L BUN 36 H (9-20) mg/dL Glucose 120 H (74-99) mg/dL POC Glucose (mg/dL) 132 H 202 H (75-99) mg/dL Total Protein 6.1 L (6.3-8.2) g/dL 10/09/16 10/09/16 Range/Units 06:23 11:51 Chloride (98-107) mmol/L Carbon Dioxide (22-30) mmol/L BUN (9-20) mg/dL Glucose (74-99) mg/dL POC Glucose (mg/dL) 119 H 104 H (75-99) mg/dL Total Protein (6.3-8.2) g/dL Microbiology - Last 24 Hours (Table) 10/05/16 09:44 Blood Culture - Preliminary Blood No Growth after 72 hours 10/05/16 19:52 Gram Stain - Final Sputum Sputum Culture - Final Assessment and Plan Plan: Community-acquired pneumonia, suspect mixed bacterial Small right pleural effusion Acute exacerbation of COPD Acute hypoxic respiratory failure Unstable angina/chest pain Congestive heart failure Plan Continue with budesonide and his current nebulizer treatments. Discontinue Solu -Medrol IV, change to PO Prednisone. Continue with antibiotics per ID. Incentive spirometer. Continue supplemental oxygen to maintain oxygen saturations greater than 92%. We will continue with pulmonary hygiene and supportive care. Home O2 evaluation prior to discharge. Ok to DC from pulmonary standpoint, follow up with Dr. Husain in 1-2 weeks.
[2016-10-09 16:43] LABS: Glucose,Whole Blood 151 mg/dL (75-99)
--- NOTE | 2016-10-09 20:48 | PN ---
Chief complaint: A 81-year-old white male with COPD, community-acquired pneumonia. HISTORY OF PRESENT ILLNESS: This 81-year-old white male with shortness of breath, oxygen at 2 liters nasal cannula. At home he does not have any oxygen. I wrote a prescription for 2 liters of oxygen at this time. QT prolongation ( ) Levaquin discontinued yesterday due to nonsustained V. tach on the monitor. He has a history of chronic atrial fibrillation, subdural hematoma. Temperature 96.3, pulse 96, respirations 16-18, blood pressure 129/66, O2 94% on 2 liters. Vital signs are reviewed. He is alert and oriented x3. CARDIOVASCULAR: Regular rate and rhythm. Aortic and mitral valve lung sounds. LUNGS: Decreased scattered wheeze x4. ABDOMEN: Soft, nontender. No mass or organomegaly. HEMATOLOGIC: Negative Homans. VASCULAR: Normal dorsalis pedis, posterior tibial and radial pulse. Sodium 141, potassium 5.0. ASSESSMENT: 1. Community-acquired pneumonia mixed bacterial small right pleural fusion. 2. Chronic obstructive pulmonary disease exacerbation. 3. Acute hypoxemic respiratory failure. 4. Unstable angina. 5. Congestive heart failure. 6. Nonsustained ventricular tachycardia. PLAN: Continue with albuterol, Atrovent, budesonide updrafts. Changed to oral prednisone, antibiotics and send home on 2 liters of oxygen tomorrow. Follow up in next week.
[2016-10-09] MEDS: FAMOTIDINE 20 MG TAB PO SCH (20:54)
[2016-10-09] MEDS: MIRTAZAPINE 15 MG TAB PO SCH (20:55)
[2016-10-09] MEDS: ZOLPIDEM 5 MG TAB PO SCH (20:59)
[2016-10-09 21:17] LABS: Glucose,Whole Blood 162 mg/dL (75-99)
[2016-10-10 06:32] LABS: Glucose,Whole Blood 83 mg/dL (75-99)
[2016-10-10] MEDS: INSULIN LISPRO (humaLOG) 300 UNIT/3 ML VIAL SQ SCH ×4 (06:40→22:06)
[2016-10-10 07:02] LABS: Basophils % (A) 0 %; CH 32.5; CHCM 31.8; Eosinophils % (A) 0 %; HCT 36.7 % (39.0-53.0); HDW 2.34; HGB 11.7 gm/dL (13.0-17.5); Luc # (Auto) 0.13; Luc % (Auto) 1; Lymphocytes % (A) 11 %; MCH 32.6 pg (25.0-35.0); MCHC 31.8 g/dL (31.0-37.0); MCV 102.4 fL (80.0-100.0); Macrocytosis Slight; Mean Platelet Volume 6.4; Monocytes # (A) 0.5 k/uL (0-1.0); Monocytes % (A) 6 %; Neutrophils # (A) 7.6 k/uL (1.3-7.7); Neutrophils % (A) 82 %; RBC 3.58 m/uL (4.30-5.90); RDW 12.5 % (11.5-15.5); WBC 9.3 k/uL (3.8-10.6); WBC (Perox) 9.34
[2016-10-10] MEDS: IPRATROPIUM-ALBUTEROL 3 ML NEB INHALATION SCH ×4 (07:02→21:04)
[2016-10-10] MEDS: BUDESONIDE 1 MG/2 ML NEBU INHALATION SCH ×2 (07:02→21:04)
[2016-10-10 07:19] LABS: ALT 49 U/L (21-72); AST 58 U/L (17-59); Alkaline Phosphatase 51 U/L (38-126); Blood Urea Nitrogen 40 mg/dL (9-20); Calcium 9.7 mg/dL (8.4-10.2); Chloride 95 mmol/L (98-107); Glucose 77 mg/dL (74-99); Non-African American GFR(MDRD) >60 (>60 ml/min/1.73 sqM); Potassium 4.2 mmol/L (3.5-5.1); Sodium 140 mmol/L (137-145); Total Bilirubin 0.7 mg/dL (0.2-1.3)
[2016-10-10 07:25] LABS: Anion Gap 7 mmol/L; Carbon Dioxide 38 mmol/L (22-30)
[2016-10-10] MEDS: AZTREONAM 2 GM in SODIUM CHLORIDE 0.9% 100 ML IVPB SCH ×2 (08:58→18:27)
[2016-10-10] MEDS: FENOFIBRATE 160 MG TAB PO SCH (08:59)
[2016-10-10] MEDS: predniSONE 20 MG TAB PO SCH (08:59)
[2016-10-10] MEDS: VERAPAMIL SR 120 MG TABLET.ER PO SCH (08:59)
[2016-10-10] MEDS: FUROSEMIDE 10 MG/ML 2 ML VIAL IV SCH ×2 (08:59→22:02)
[2016-10-10] MEDS: ASPIRIN 81 MG CHEW PO SCH (08:59)
[2016-10-10] MEDS: SPIRONOLACTONE 25 MG TAB PO SCH (08:59)
[2016-10-10 12:23] LABS: Glucose,Whole Blood 105 mg/dL (75-99)
[2016-10-10] MEDS: FERROUS SULFATE 325 MG TAB PO SCH (12:26)
[2016-10-10] MEDS: guaiFENesin-DM 100-10MG/5ML 10 ML CUP PO PRN ×2 (12:27→22:04)
[2016-10-10 17:49] LABS: Glucose,Whole Blood 132 mg/dL (75-99)
--- NOTE | 2016-10-10 18:30 | PN ---
SUBJECTIVE: This is a 81-year-old white male admitted with pneumonia, hypoxemia. He had some nonsustained V. tach a few days ago, QT prolongation, drugs were decreased. Hemoglobin is 11.7. White count is 9.3. Sugars in the mid 100s. BUN is 40, creatinine 0.85, total protein is 6. CARDIOVASCULAR: S1, S2 his oxygen levels is low 90s on 3 liters. GI: Soft. HEMATOLOGIC: Negative Homans. PSYCHIATRIC: Fair mood and affect. NEUROLOGIC: Alert and oriented x3. ASSESSMENT: 1. Pneumonia. 2. Chronic obstructive pulmonary disease exacerbation. 3. Aortic and mitral valve stenosis repair. He will have to go on home oxygen, which is trying to be arranged at this time. 4. Hypertension. 5. Dyslipidemia. Due to subdural hematoma no anticoagulants will be used except for aspirin. He will be discharged home once his home oxygen is set up and home antibiotics are given per infectious disease as he cannot take Aztreonam home on oral fashion.
[2016-10-10 21:16] LABS: Glucose,Whole Blood 189 mg/dL (75-99)
[2016-10-10] MEDS: FAMOTIDINE 20 MG TAB PO SCH (22:02)
[2016-10-10] MEDS: MIRTAZAPINE 15 MG TAB PO SCH (22:03)
[2016-10-10] MEDS: ZOLPIDEM 5 MG TAB PO SCH (22:06)
[2016-10-11] MEDS: AZTREONAM 2 GM in SODIUM CHLORIDE 0.9% 100 ML IVPB SCH ×3 (00:19→16:34)
[2016-10-11 06:27] LABS: Glucose,Whole Blood 84 mg/dL (75-99)
[2016-10-11] MEDS: INSULIN LISPRO (humaLOG) 300 UNIT/3 ML VIAL SQ SCH ×2 (06:30→12:07)
--- NOTE | 2016-10-11 07:55 | PN ---
DATE OF SERVICE: 10/10/2016 Reason for followup is pneumonia. INTERVAL HISTORY: The patient is afebrile. He is feeling better. Breathing comfortably. Denies any significant chest pain. Occasional cough and some sputum. Denies any abdominal pain. No diarrhea. On examination, blood pressure is 121/59 with a pulse of 90, temperature is 97.4. He is 97% on room air. General description is an elderly male, lying in bed in no distress. RESPIRATORY SYSTEM: Unlabored breathing. Decreased breath sounds at the base. No wheeze. HEART: S1, S2 regular rate and rhythm. ABDOMEN: Soft, no tenderness. LABS: Hemoglobin 11.7, white count 9.3 with a BUN of 40, creatinine 0.85. DIAGNOSTIC IMPRESSION AND PLAN: Patient with pneumonia, likely community-acquired. Showed overall improvement on his treatment with Levaquin with a history of PENICILLIN ALLERGY which the patient denied. Plan to finish therapy with oral Levaquin. Continue supportive care.
[2016-10-11 09:09] VITALS: TEMP 97.2
[2016-10-11] MEDS: FENOFIBRATE 160 MG TAB PO SCH (09:16)
[2016-10-11] MEDS: FERROUS SULFATE 325 MG TAB PO SCH (09:16)
[2016-10-11] MEDS: VERAPAMIL SR 120 MG TABLET.ER PO SCH (09:16)
[2016-10-11] MEDS: ASPIRIN 81 MG CHEW PO SCH (09:16)
[2016-10-11] MEDS: SPIRONOLACTONE 25 MG TAB PO SCH (09:17)
[2016-10-11] MEDS: FUROSEMIDE 10 MG/ML 2 ML VIAL IV SCH (09:17)
[2016-10-11] MEDS: predniSONE 20 MG TAB PO SCH (09:17)
[2016-10-11] MEDS: BUDESONIDE 1 MG/2 ML NEBU INHALATION SCH (09:37)
[2016-10-11] MEDS: IPRATROPIUM-ALBUTEROL 3 ML NEB INHALATION SCH ×3 (09:37→16:00)
[2016-10-11] MEDS: guaiFENesin-DM 100-10MG/5ML 10 ML CUP PO PRN (10:24)
[2016-10-11 11:30] LABS: Glucose,Whole Blood 132 mg/dL (75-99)
[2016-10-11 11:47] VITALS: BP 138/60; RESP 16
--- NOTE | 2016-10-11 12:17 | PN ---
DATE OF SERVICE: 10/11/2016 Reason for followup is pneumonia. INTERVAL HISTORY: The patient is afebrile. Has been breathing comfortably. Denies significant chest pain, no cough. No abdominal pain, no diarrhea On examination, blood pressure 132/60 with a pulse of 90, temperature 98, he is 96% on 2 L nasal cannula. General description is an elderly male, lying in bed in no distress. RESPIRATORY SYSTEM: Unlabored breathing. Clear to auscultation. HEART: S1, S2, regular rate and rhythm. ABDOMEN: Soft, no tenderness. LABS: Patient's last sputum has been respiratory ingrid. Blood culture negative. DIAGNOSTIC IMPRESSION AND PLAN: Patient with multifocal pneumonia, community-acquired. Sputum negative for any resistant pathogen. Plan to finish therapy with oral Levaquin another 7 to 10 days. Continue supportive care.
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
--- NOTE | 2016-10-11 13:40 | P.PN ---
Subjective This is a 81-year-old male patient being evaluated and examined today on the selective care unit. This patient came into the emergency room with chest pain and shortness of breath. He states that his main complaint is her shortness of breath which had been worsening over the last few days, especially with exertion. Patient states that he has had an extensive cough with congestion and white to green sputum. Per the ER labs the patient did have an BNP of 3370 , and elevated troponin of 0.039 therefore the patient was started on low intensity heparin. Patient's chest x-ray was reviewed and revealed a right lower lobe pneumonia with possible left lower lobe pneumonia. CT of the chest failed to show any pulmonary emboli. Patient was admitted to the selective care unit with congestive heart failure, community-acquired pneumonia, acute exacerbation of chronic obstructive airway disease, unstable angina, chest pain. Upon examination the patient is resting up in bed on 2 L of supplemental oxygen via nasal cannula. This patient does not use home oxygen at all, however he will require this on discharge.. He continues to complain of a productive cough with white to green sputum, however is improving. Coughing is also less frequent. Objective - Vital Signs Vital signs: Vital Signs Temp 97.2 F L 10/11/16 08:00 Pulse 90 10/11/16 11:44 Resp 16 10/11/16 11:44 BP 138/60 10/11/16 11:44 Pulse Ox 96 10/11/16 11:44 Intake & Output 10/10/16 10/11/16 10/11/16 18:59 06:59 18:59 Intake Total 510 280 478 Output Total 400 1450 1000 Balance 110 1170 -522 Weight 61.9 kg Intake: IV 100 Aztreonam 2 gm In Sodium 100 Chloride 0.9% 100 ml @ 100 mls/hr IVPB Q8HR TEMO Rx#:[id number] Intake, IV Titration 100 Amount Aztreonam 2 gm In Sodium 100 Chloride 0.9% 100 ml @ 100 mls/hr IVPB Q8HR TEMO Rx#:[id number] Oral 410 180 478 Output: Urine 400 1450 1000 Other: Voiding Method Urinal # Voids 1 1 - Exam GENERAL EXAM: Alert, active, comfortable in no apparent distress. HEAD: Normocephalic. EYES: Normal reaction of pupils, equal size. NOSE: Clear with pink turbinates. THROAT: No erythema or exudates. NECK: No masses, no JVD. CHEST: No chest wall deformity. LUNGS: Patient did have scattered rhonchi and wheezes throughout. Lung sounds course, bases diminished. CVS: S1 and S2 normal with no audible mumurs, regular rhythm. ABDOMEN: No hepatosplenomegaly, normal bowel sounds, no guarding or rigidity. EXTREMITIES: No edema noted, pedal pulses palpable. SKIN: No rashes CENTRAL NERVOUS SYSTEM: No focal deficits, tone is normal in all 4 extremities. - Labs CBC & Chem 7: 10/10/16 06:32 10/10/16 06:32 Labs: Abnormal Lab Results - Last 24 Hours (Table) 10/10/16 10/10/16 10/11/16 Range/Units 17:25 21:15 11:28 POC Glucose (mg/dL) 132 H 189 H 132 H (75-99) mg/dL Microbiology - Last 24 Hours (Table) 10/05/16 09:44 Blood Culture - Final Blood No Growth after 144 hours Assessment and Plan Plan: Assessment Community-acquired pneumonia, suspect mixed bacterial Small right pleural effusion Acute exacerbation of COPD Acute hypoxic respiratory failure Unstable angina/chest pain Congestive heart failure Plan Patient can be cleared for discharge from a pulmonary standpoint. Medications have been reviewed and will be continued as ordered. Continue with budesonide and his current nebulizer treatments. Continue with antibiotics. encourage incentive spirometer. Continue supplemental oxygen to maintain oxygen saturations greater than 92%. Patient will require home oxygen 2 L via nasal cannula.. We will continue with pulmonary hygiene and supportive care. Continue to monitor the effusion. Cardiology also on consult. We will continue to monitor labs/results and adjust treatment as necessary. I performed an examination of the patient and discussed their management with the nurse practitioner. I have reviewed the nurse practitioner's note and agree with the documented findings and plan of care.
[2016-10-11] MEDS ORDERED: FUROSEMIDE 20 MG TAB PO SCH (16:00)
[2016-10-11 16:06] VITALS: PULSE 70
== END 2016-10-11 17:25 | disposition home health service (06) | DRG 190 ==
LOC: EC 09:15 → 6SEL 10:17
PROVIDERS: ADMIT Family Medicine; ATTEND Family Medicine
DX: J44.0 Chronic obstructive pulmonary disease with (acute) lower respiratory infection (principal); J15.9 Unspecified bacterial pneumonia; J96.01 Acute respiratory failure with hypoxia; I47.2 Ventricular tachycardia; I25.110 Atherosclerotic heart disease of native coronary artery with unstable angina pectoris; I48.1 Persistent atrial fibrillation; I27.2 Other secondary pulmonary hypertension; I11.0 Hypertensive heart disease with heart failure; E83.42 Hypomagnesemia; I50.9 Heart failure, unspecified; I48.2 Chronic atrial fibrillation; J44.1 Chronic obstructive pulmonary disease with (acute) exacerbation; E66.9 Obesity, unspecified; E78.5 Hyperlipidemia, unspecified; F17.200 Nicotine dependence, unspecified, uncomplicated; F32.9 Major depressive disorder, single episode, unspecified; G89.29 Other chronic pain; M54.5 Low back pain; M19.012 Primary osteoarthritis, left shoulder; M19.011 Primary osteoarthritis, right shoulder; Z79.82 Long term (current) use of aspirin; Z79.899 Other long term (current) drug therapy; Z88.6 Allergy status to analgesic agent; Z88.0 Allergy status to penicillin; Z95.2 Presence of prosthetic heart valve; Z95.1 Presence of aortocoronary bypass graft
CPT/HCPCS: 36415; 71010; 71020; 71260; 80048; 80053; 80061; 80162; 82550; 82553; 83735; 83880; 84132; 84484; 85025; 85049; 85379; 85610; 85730; 87040; 87070; 87205; 93005; 93306; 94640; 94760; 96361; 96365; 96367; 96368; 96376; 99291

== ENCOUNTER → 2017-08-24 | Outpatient (CLI) | payer MEDICARE, OTHER ==
--- NOTE | 2017-08-24 14:56 | US ---
EXAMINATION TYPE: US carotid duplex BILAT DATE OF EXAM: 08/24/2017 COMPARISON: US CLINICAL HISTORY: Cerebral infarction, unspecified I63.9; patient stated had left arm weakness and le ft face weakness; smoker since age 14. EXAM MEASUREMENTS: RIGHT: Peak Systolic Velocity (PSV) cm/sec ----- Right CCA: 51.3 ----- Right ICA: 104.2 ----- Right ECA: 97.9 ICA/CCA ratio: 2.0 RIGHT: End Diastole cm/sec ----- Right CCA: 0.0 ----- Right ICA: 22.7 ----- Right ECA: 9.8 LEFT: Peak Systolic Velocity (PSV) cm/sec ----- Left CCA: 38.1 ----- Left ICA: 105.7 ----- Left ECA: 117.2 ICA/CCA ratio: 2.8 LEFT: End Diastole cm/sec ----- Left CCA: 7.5 ----- Left ICA: 30.6 ----- Left ECA: 0.0 VERTEBRALS (direction of flow): Right Vertebral: Antegrade Left Vertebral: Antegrade Rhythm: Arrhythmia Irregular intimal wall plaque is noted throughout bilateral carotid vessels, but PSV is wnl bilateral ly. IMPRESSION: 1. Atheromatous plaquing without significant flow-limiting stenosis. 2. Some irregular heart rate was noted during the examination. Criteria for Assigning % of Stenosis / Diameter reduction (Estimation based on the indirect measurements of the internal carotid artery velocities (ICA PSV). 1. Normal (no stenosis)=ICA PSV < 125 cm/s: ratio < 2.0: ICA EDV<40 cm/s. 2. Less than 50% stenosis=ICA PSV < 125 cm/s: ratio < 2.0: ICA EDV<40 cm/s. 3. 50 to 69% stenosis=ICA PSV of 125 to 230 cm/s: ration 2.0 ? 4.0: ICA EDV 40-100 cm/s. 4. Greater than 70% stenosis to near occlusion= ICA PSV > 230 cm/s: ratio > 4.0: ICA EDV > 100 cm/s. 5. Near occlusion= ICA PSV velocities may be low or undetectable: variable ratio and ICA EDV. 6. Total occlusion=unable to detect flow.
--- NOTE | 2017-08-25 11:25 | ECHOF ---
Referral Reason:Cerebral infarction, unspecified I63.9 MEASUREMENTS -------- HEIGHT: 182.9 cm WEIGHT: 64.4 kg BP: 102/51 RVIDd: 3.3 cm (< 3.3) IVSd: 1.2 cm (0.6 - 1.1) LVIDd: 4.0 cm (3.9 - 5.3) LVPWd: 1.2 cm (0.6 - 1.1) IVSs: 1.4 cm LVIDs: 2.4 cm LVPWs: 1.4 cm LA Diam: 2.4 cm (2.7 - 3.8) LAESV Index (A-L): 126.94 ml/m Ao Diam: 3.5 cm (2.0 - 3.7) AV Cusp: 1.0 cm (1.5 - 2.6) LA Diam: 6.0 cm (2.7 - 3.8) AV maxP.71 mmHg AV meanP.56 mmHg RAP: 5.00 mmHg RVSP: 40.03 mmHg FINDINGS -------- Sinus rhythm with extra systolic beats. This was a technically good study. The left ventricular size is normal. There is mild concentric left ventricular hypertrophy. Overa ll left ventricular systolic function is moderate-severely impaired with, an EF between 30 - 35 %. Basal anterior LV wall motion is hypokinetic. Basal lateral LV wall motion is hypokinetic. Basa l posterior LV wall motion is hypokinetic. Basal inferoseptal LV wall motion is hypokinetic. Ba caroline anteroseptal LV wall motion is hypokinetic. Mid anterior LV wall motion is hypokinetic. Mid lateral LV wall motion is hypokinetic. The right ventricle is mildly enlarged. LA is severely dilated >40 ml/m2 The right atrium is markedly enlarged. There is moderate aortic valve sclerosis. There is no evidence of aortic regurgitation. There is mild aortic stenosis present. Peak/mean gradient across the Aortic Valve is 28.71mmHg / 12.56mmHg. Normally functioning mechanical prosthetic mitral valve of the tilting disk type. Unable to accurate ly state mitral regurgitation due to mechanical mitral valve. Moderate tricuspid regurgitation present. There is mild pulmonary hypertension. The right ventric ular systolic pressure, as measured by Doppler, is 40.03mmHg. The pulmonic valve was not well visualized. The aortic root size is normal. Normal inferior vena cava with normal inspiratory collapse consistent with estimated right atrial pre ssure of 5 mmHg. There is no pericardial effusion. CONCLUSIONS -------- 1. Sinus rhythm with extra systolic beats. 2. This was a technically good study. 3. The left ventricular size is normal. 4. There is mild concentric left ventricular hypertrophy. 5. Overall left ventricular systolic function is moderate-severely impaired with, an EF between 30 - 35 %. 6. Basal anterior LV wall motion is hypokinetic. 7. Basal lateral LV wall motion is hypokinetic. 8. Basal posterior LV wall motion is hypokinetic. 9. Basal inferoseptal LV wall motion is hypokinetic. 10. Basal anteroseptal LV wall motion is hypokinetic. 11. Mid anterior LV wall motion is hypokinetic. 12. Mid lateral LV wall motion is hypokinetic. 13. The right ventricle is mildly enlarged. 14. LA is severely dilated >40 ml/m2 15. The right atrium is markedly enlarged. 16. There is moderate aortic valve sclerosis. 17. There is mild aortic stenosis present. 18. Peak/mean gradient across the Aortic Valve is 28.71mmHg / 12.56mmHg. 19. Normally functioning mechanical prosthetic mitral valve of the tilting disk type. 20. Unable to accurately state mitral regurgitation due to mechanical mitral valve. 21. Moderate tricuspid regurgitation present. 22. There is mild pulmonary hypertension. 23. The right ventricular systolic pressure, as measured by Doppler, is 40.03mmHg. 24. The pulmonic valve was not well visualized. 25. The aortic root size is normal. 26. There is no pericardial effusion. DIGITAL MARKETING ANALYST: Cisco Garcia RDCS
== END | disposition home or self-care (01) ==
LOC: RADECHMAIN 12:44
PROVIDERS: ATTEND Family Medicine
DX: I67.2 Cerebral atherosclerosis (principal); I07.1 Rheumatic tricuspid insufficiency; I35.0 Nonrheumatic aortic (valve) stenosis; I27.20 Pulmonary hypertension, unspecified
CPT/HCPCS: 93306; 93880

== ENCOUNTER → 2020-02-08 | Outpatient (CLI) | payer MEDICARE, OTHER ==
[2020-02-08 12:18] LABS: African American GFR (CKD) >90 (>60 ml/min/1.73 sqM); Blood Urea Nitrogen 18 mg/dL (9-20); Non-African American GFR(CKD) 82 (>60 ml/min/1.73 sqM)
--- NOTE | 2020-02-08 18:01 | CT ---
EXAMINATION TYPE: CT chest w con DATE OF EXAM: 02/08/2020 COMPARISON: CT chest 10/05/2016 HISTORY: COPD CT DLP: 254.1 mGycm Automated exposure control for dose reduction was used. CONTRAST: CT scan of the chest is performed with IV Contrast, patient injected with 100 mL of Isovue 300. FINDINGS: LUNGS: Severe centrilobular emphysema, with large redemonstrated apical bulla, right greater than lef t. There is calcification along the right apical bulla/pleura redemonstrated. Mild right basilar atel ectasis. No concerning parenchymal mass or nodule identified. No pleural effusion. No pneumothorax. T he tracheobronchial tree is patent. MEDIASTINUM/SOFT TISSUES: No axillary, hilar, or mediastinal lymphadenopathy greater than 1 cm. Redem onstrated cardiomegaly with left atrial enlargement. Calcified coronary artery disease. No pericardia l effusion. No thoracic aortic aneurysm. UPPER ABDOMEN: Too small to characterize hypodense lesions of the liver. OSSEOUS: Decreased osseous mineralization. Degenerative changes of the spine. Sternotomy wires. IMPRESSION: Severe emphysema, with large apical bulla, right greater than left.
--- NOTE | 2020-02-08 19:19 | ECHOF ---
Referral Reason:I50.20 Congestive heart failure, J44.9 COPD MEASUREMENTS -------- HEIGHT: 177.8 cm WEIGHT: 62.6 kg BP: IVSd: 1.1 cm (0.6 - 1.1) LVIDd: 4.5 cm (3.9 - 5.3) LVPWd: 1.5 cm (0.6 - 1.1) IVSs: 1.6 cm LVIDs: 2.6 cm LVPWs: 2.0 cm Ao Diam: 2.0 cm (2.0 - 3.7) AV Cusp: 0.7 cm (1.5 - 2.6) LA Diam: 5.8 cm (2.7 - 3.8) MV E Arnaldo: 1.31 m/s MV DecT: 256 ms MV A Arnaldo: 0.70 m/s MV E/A Ratio: 1.87 AV maxP.84 mmHg AV meanP.49 mmHg RAP: 5.00 mmHg RVSP: 33.21 mmHg FINDINGS -------- This was a technically adequate study. History of open heart surgery with MV replacement. The left ventricular size is normal. There is mild concentric left ventricular hypertrophy. Overa ll left ventricular systolic function is mild-moderately impaired with, an EF between 40 - 45 %. Th ere is paradoxical/dysynergic septal motion consistent with post-operative status. The right ventricle is normal in size. The left atrium is markedly dilated. The right atrial size is normal. Aneurysmal Interatrial septum. Aortic valve is trileaflet and is mildly thickened. There is mild aortic stenosis present. Peak/m lesley gradient across the Aortic Valve is 20.84mmHg / 11.49mmHg. Severe mitral annular calcification present. There is trace mitral regurgitation. Mechanical MVR appears to be well seated. Not well seen however. The tricuspid valve appears structurally normal. Mild tricuspid regurgitation present. Right vent ricular systolic pressure is normal at < 35 mmHg. There is no pulmonic regurgitation present. The aortic root size is normal. The inferior vena cava is mildly dilated. There is no pericardial effusion. CONCLUSIONS -------- 1. History of open heart surgery with a MV replacement. 2. The left ventricular size is normal. 3. There is mild concentric left ventricular hypertrophy. 4. Overall left ventricular systolic function is mild-moderately impaired with, an EF between 40 - 45 %. 5. There is paradoxical/dysynergic septal motion consistent with post-operative status. 6. The left atrium is markedly dilated. 7. Aneurysmal Interatrial septum. 8. Aortic valve is trileaflet and is mildly thickened. 9. There is mild aortic stenosis present. 10. Peak/mean gradient across the Aortic Valve is 20.84mmHg / 11.49mmHg. 11. Severe mitral annular calcification present. 12. There is trace mitral regurgitation. 13. Mechanical MVR is well seated. 14. Mild tricuspid regurgitation present. 15. The inferior vena cava is mildly dilated. 16. There is no pericardial effusion. WOOD BLOCK ARTIST: Shena Antonio RDCS
== END | disposition home or self-care (01) ==
LOC: RADECHMAIN 11:05
PROVIDERS: ATTEND Family Medicine
DX: I25.3 Aneurysm of heart (principal); I07.1 Rheumatic tricuspid insufficiency; I06.0 Rheumatic aortic stenosis; I05.8 Other rheumatic mitral valve diseases; J43.9 Emphysema, unspecified; Z95.2 Presence of prosthetic heart valve
CPT/HCPCS: 93306; 82565; 84520; 71260; 36415; Q9967